=== PATIENT | male | born 1975 | race Caucasian/White ===

== ENCOUNTER 2019-11-15 13:48 | Emergency (ER) | payer OTHER, SELFPAY ==
[2019-11-15 13:56] VITALS: BP 167/86; PULSE 74; RESP 16; TEMP 36.4; O2SAT 100
--- NOTE | 2019-11-15 15:22 | ED.WOUNDLAC ---
HPI - Wound/Laceration General Chief Complaint: Wound/Laceration Stated Complaint: LACERATION Time Seen by Provider: 11/15/19 13:53 Source: patient Mode of arrival: ambulatory Limitations: no limitations History of Present Illness HPI narrative: This is a 44-year-old male who presents the emergency department for left thumb laceration sustained just prior to arrival. Reports at work he hit his thumb on a metal down spout. Reports some bleeding to the area. Reports he is up-to-date on tetanus. Denies numbness or decreased range of motion. Related Data Home Medications Medication Instructions Recorded Confirmed aspirin 09/27/19 atorvastatin 09/27/19 clopidogrel 09/27/19 Allergies Allergy/AdvReac Type Severity Reaction Status Date / Time No Known Allergies Allergy Unverified 09/27/19 07:40 Review of Systems Review of Systems: Narrative: CONSTITUTIONAL: Denies fever SKIN: Reports laceration MUSCULOSKELETAL: Denies joint pain NEUROLOGIC: Denies numbness All systems reviewed & are unremarkable except as noted in HPI and below PMFSH Past Medical History Medical History (Updated 11/15/19 @ 15:23 by Renea Thurman PA-C) Coronary artery disease Diabetes mellitus Hyperlipidemia Surgical History Surgical History (Updated 09/27/19 @ 08:34 by Kristie Mcdowell MD) History of appendectomy History of cardiac catheterization History of coronary artery stent placement Social History Social History (Updated 09/27/19 @ 08:34 by Kristie Mcdowell MD) Smoking packs per day: 1 Smoking cigarettes per day: 20.0 Years smoked: 30 Smoking pack-years: 30.00 Smoking status: Current every day smoker Gender identity (if verbalized by the patient): Male Exam Narrative: Exam Narrative: GENERAL: Well-appearing, well-nourished, and in no acute distress. HEAD: Normocephalic, atraumatic. EYES: EOMI. EXTREMITIES: Normal range of motion. No edema or obvious deformity. 1.5 cm linear laceration into subcutaneous tissue over dorsal surface at base of left first finger SKIN: Warm, dry, no rash. NEURO: No focal deficits. Alert and oriented x3. PSYCH: Normal mood and affect Course Vital Signs Vital signs: Vital Signs Temperature 97.5 F L 11/15/19 13:56 Pulse Rate 74 11/15/19 13:56 Respiratory Rate 16 11/15/19 13:56 Blood Pressure 167/86 H 11/15/19 13:56 Pulse Oximetry 100 11/15/19 13:56 Temperature 97.5 F L 11/15/19 13:56 Pulse Rate 74 11/15/19 13:56 Respiratory Rate 16 11/15/19 13:56 Blood Pressure 167/86 H 11/15/19 13:56 Pulse Oximetry 100 11/15/19 13:56 Procedures Laceration Laceration 1: Date: 11/15/19 Time: 15:25 Site: upper extremity Side (If applicable): left Size (cm): 1.5 Description: linear Depth: simple, single layer Local Anesthetic: lidocaine 1% Amount of anesthesia used (mL): 2 Pre-repair: irrigated ====== Skin Level ====== Skin layer closed with: nylon Size (cm): 5-0 Number of sutures: 2 Technique: simple, interrupted ====== Subcutaneous Layer ====== ====== Muscle Layer ====== ====== Tendon Layer ====== Dressing: Wound covered with antibiotic ointment, Telfa, Kerlix and Coban MDM - Wound/Laceration MDM Narrative Medical decision making narrative: Patient presents the emergency department for laceration to left thumb sustained just prior to arrival. Patient is up-to-date on tetanus. His wound was irrigated and closed with sutures. Patient will be started on a prophylactic antibiotic as his wound was a little dirty and it is on the hand. Patient was instructed on wound care. He is to follow-up with primary care doctor. He was given warnings to return to the ER Critical Care Time Critical Care Time Critical Care Time: No Discharge Plan Discharge Clinical Impression: Laceration Patient Disposition: Home, Self-
== END 2019-11-15 15:38 | disposition home or self-care (01) ==
PROVIDERS: Emergency Provider Emergency Medicine
DX: S61.012A Laceration without foreign body of left thumb without damage to nail, initial encounter (principal); I25.10 Atherosclerotic heart disease of native coronary artery without angina pectoris; E11.9 Type 2 diabetes mellitus without complications; E78.5 Hyperlipidemia, unspecified; Z79.82 Long term (current) use of aspirin; Z95.5 Presence of coronary angioplasty implant and graft; F17.210 Nicotine dependence, cigarettes, uncomplicated; W26.8XXA Contact with other sharp object(s), not elsewhere classified, initial encounter
CPT/HCPCS: 12001; 99283

== ENCOUNTER 2021-05-01 16:02 | Emergency (ER) | payer OTHER, SELFPAY ==
[2021-05-01] VITALS (10 sets, daily range): BP systolic 133–146; BP diastolic 73–86; PULSE 67–82; RESP 16–21; TEMP 36.6; O2SAT 91–100
--- NOTE | ~2021-05-01 | CT_ITS ---
EXAMINATION: CT chest abdomen pelvis w con DATE: 05/01/2021 17:06 INDICATION: 15 foot fall from a ladder with right rib and abdominal pain. TECHNIQUE: Computed tomography (CT) of the chest, abdomen, and pelvis was performed with 100 mL Omnip aque-350 intravenous contrast. Automated exposure control and iterative reconstruction technique were employed. The dose-length product was 1009.09 mGy-cm. COMPARISON: 04/17/2012 FINDINGS: CHEST CT: Lungs are clear with no pneumonia, pulmonary edema or other pulmonary infiltrates, pleural effusion o r pneumothorax. Heart size is normal. Atherosclerotic coronary artery calcification and likely stenti ng along the left anterior descending coronary artery. No pericardial effusion. Thoracic aorta is nor mal in caliber with no dissection. No pathologically enlarged thoracic lymphadenopathy. Mild thoracic spondylosis with multiple Schmorl's nodes and minimal chronic anterior wedging at T8. No rib fractur es or other acute osseous abnormality. ABDOMEN/PELVIS CT: Liver, gallbladder, spleen, pancreas, bilateral adrenal glands and kidneys are normal. Bowels are nor mal. The appendix is not visualized. No pericecal inflammatory change to suggest acute appendicitis. Bladder is normal. Mild prostatomegaly. Small bilateral fat-containing inguinal hernias. No free intr aperitoneal gas or fluid. No pathologically enlarged abdominal or pelvic lymphadenopathy. Subcutaneou s contusion overlying the right anterior iliac spine. 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 No acute osseous abnormality. IMPRESSION: 1. No fracture or acute intrathoracic, abdominal or pelvic process. Reviewed, dictated and finalized at location A.
--- NOTE | 2021-05-01 16:34 | ECG_ITS ---
Measurements Intervals Adrian Rate: 71 P: 48 ID: [id number] QRS: 17 QRSD: 92 T: 48 QT: 367 QTc: 399 Interpretive Statements SINUS RHYTHM DELAYED PRECORDIAL R/S TRANSITION BORDERLINE ECG Electronically Signed On 05-01-2021 16:36:52 CDT by Isak Sparks D.O.
[2021-05-01 16:39] LABS: Basophils Absolute Auto 0.1 K/mm3 (0.0-0.1); Basophils Percent Auto 0.5 % (0.2-1.2); Eosinophils Absolute Auto 0.3 K/mm3 (0-0.3); Eosinophils Percent Auto 2.6 % (0-4.4); Hematocrit 44.6 % (42.0-52.0); Hemoglobin 14.7 g/dL (14.0-18.0); Immature Granulocyte Absolute 0.07 K/mm3 (0.00-0.031); Immature Granulocyte Percent A 0.5 % (0-0.5); Lymphocytes Absolute Auto 3.54 K/mm3 (0.9-3.2); Lymphocytes Percent Auto 27.3 % (18.3-44.2); Mean Corpuscular Hemoglobin 30.8 pg (26-34); Mean Corpuscular Volume 93.3 fl (80-100); Mean Platelet Volume 9.9 fl (7.4-10.4); Monocytes Absolute Auto 0.8 K/mm3 (0.1-0.6); Monocytes Percent Auto 6.3 % (2.6-8.5); Neutrophils Absolute Auto 8.1 K/mm3 (1.3-6.7); Neutrophils Percent Auto 62.8 % (45.5-73.1); Platelet Count Result 308 k/mm3 (150-375); Red Blood Count 4.78 M/mm3 (4.6-6.20)
[2021-05-01 16:58] LABS: Alanine Aminotransferase 46 U/L (4-50); Albumin Level 4.5 g/dL (3.5-5.1); Alkaline Phosphatase 107 U/L (38-126); Anion Gap 10 mmol/L (8-16); Aspartate Amino Transferase 42 U/L (17-59); Bilirubin,Total 0.4 mg/dL (0.2-1.3); Blood Urea Nitrogen 22 mg/dL (9-20); Calcium 9.5 mg/dL (8.4-10.2); Carbon Dioxide 26 mmol/L (22-30); Chloride 102 mmol/L (98-107); Estimated CRCL calculation 97 ml/min; Estimated Glomerular Filt Rate > 60; Glucose 187 mg/dL (65-110); Potassium 4.1 mmol/L (3.4-5.0); Sodium 138 mmol/L (137-145)
[2021-05-01 17:02] LABS: Prothrombin Time 12.6 Seconds (11.1-14.7)
--- NOTE | 2021-05-01 17:03 | ED.FALL ---
HPI - Fall General Chief Complaint: Fall Stated Complaint: Fell ~10 ft off ladder,landed on r side Time Seen by Provider: 05/01/21 16:19 Source: patient, family and RN notes reviewed Mode of arrival: ambulatory Limitations: no limitations History of Present Illness HPI Narrative: Patient is a 46-year-old male who presents to emergency department for evaluation of injuries that occurred this morning after falling 15 feet on a ladder onto the grass onto his right side patient went home and attempted to lay down but notes that he continues to have pain to the right ribs flank and abdomen on the right side patient denies any vomiting extremity injury patient notes he may have hit his head but denies any syncope notes he may have had brief loss of consciousness but denies any lightheadedness or dizziness notes minimal headache is currently on Plavix presents per private vehicle appears uncomfortable but not distressed Related Data Home Medications Medication Instructions Recorded Confirmed aspirin 09/27/19 atorvastatin 09/27/19 clopidogrel 09/27/19 Allergies Allergy/AdvReac Type Severity Reaction Status Date / Time No Known Allergies Allergy Verified 05/01/21 16:14 Review of Systems Review of Systems: All systems reviewed & are unremarkable except as noted in HPI and below PMFSH Past Medical History Medical History Coronary artery disease Diabetes mellitus Hyperlipidemia Surgical History Surgical History History of appendectomy History of cardiac catheterization History of coronary artery stent placement Social History Social History Smoking packs per day: 1 Smoking cigarettes per day: 20.0 Years smoked: 30 Smoking pack-years: 30.00 Smoking status: Current every day smoker Gender identity (if verbalized by the patient): Male Exam Narrative: Exam Narrative: GENERAL: Well-appearing, well-nourished, and in no acute distress. HEAD: Normocephalic, atraumatic. EYES: PERRLA and EOMI. ENT: Nares clear, no rhinorrhea or epistaxis. Mucous membranes moist. NECK: Supple. No adenopathy or masses. CHEST: Clear to auscultation. No respiratory distress. No wheezes rales or rhonchi. Tenderness of the right lateral lower ribs HEART: Regular rate and rhythm. No murmur heard. Normal peripheral pulses. ABDOMEN: Soft, right flank tenderness, distended, normal active bowel sounds. EXTREMITIES: Normal range of motion. No edema. No midline cervical thoracic or lumbar tenderness SKIN: Warm, dry, no rash. NEURO: No focal deficits. Alert and oriented x3. Cranial nerves II through XII grossly intact. Normal speech and gait PSYCH: Normal mood and affect. Course Course Emergency Course: Patient presented after falling from 15 feet had evaluation with CT imaging no concerning results blood work without concerning findings patient resting comfortably in the room was medicated feeling better with medications is afebrile nontoxic-appearing ABCs and vital signs intact and stable felt appropriate for outpatient reevaluation Vital Signs Vital signs: Vital Signs Temperature 97.9 F 05/01/21 16:10 Pulse Rate 70 05/01/21 16:10 Respiratory Rate 16 05/01/21 16:10 Blood Pressure 146/73 H 05/01/21 16:10 Pulse Oximetry 99 05/01/21 16:10 Temperature 97.9 F 05/01/21 16:10 Pulse Rate 67 05/01/21 17:48 Respiratory Rate 18 05/01/21 17:48 Blood Pressure 141/78 H 05/01/21 17:33 Pulse Oximetry 91 05/01/21 17:48 MDM - Fall MDM Narrative Medical decision making narrative: Patients injury or pain is consistent with musculoskeletal etiology. No signs of neurological or vascular compromise on exam. Compartments and tisues are soft without signs of compartment syndrome. Pain is felt appropriate for further evaluation on an outpatient b
[2021-05-01 17:04] LABS: Partial Thromboplastin Time 30.1 SECONDS (22.3-36.8)
[2021-05-01] MEDS: MORPHINE SULFATE (*CRX) 4 MG/ML INJ IV PUSH (17:32)
[2021-05-01] MEDS: diazePAM INJ (*CRX) 10 MG/2 ML SYRINGE 2.5 MG IV PUSH (17:32)
[2021-05-01 17:45] LABS: Add Urine Microscopic? NO; Appearance Urine Clear (Clear); Bilirubin Urine Negative (Negative); Blood Urine Negative (Negative); Color Urine Yellow (Yellow); Glucose Urine UA Negative (Negative); Ketones Urine Negative (Negative); Leukocyte Esterase Ur Negative LEU/UL (Negative); Nitrate Urine Negative (Negative); Protein Urine Negative (Negative); Urobilinogen Urine Negative mg/dL (<2.0)
--- NOTE | 2021-05-01 18:27 | PC.NURSE ---
no bruising, vaughn, or obvious injuries or deformities to patient.
[2021-05-01 18:50] LABS: Specific Grav Ur 1.031 (1.001-1.035)
== END 2021-05-01 18:40 | disposition home or self-care (01) ==
PROVIDERS: Emergency Medicine Emergency Medical Services; Emergency Provider Emergency Medicine; PCP Nurse Practitioner Adult Health
DX: R07.81 Pleurodynia (principal); S09.90XA Unspecified injury of head, initial encounter; R10.9 Unspecified abdominal pain; I25.10 Atherosclerotic heart disease of native coronary artery without angina pectoris; Z95.5 Presence of coronary angioplasty implant and graft; F17.210 Nicotine dependence, cigarettes, uncomplicated; R94.31 Abnormal electrocardiogram [ECG] [EKG]; W11.XXXA Fall on and from ladder, initial encounter
CPT/HCPCS: 36415; 71260; 74177; 80053; 81003; 85025; 85610; 85730; 93005; 96374; 96375; 99284; J2270; J3360; Q9967

== ENCOUNTER 2024-05-21 11:33 | Outpatient (CLI) | payer OTHER, SELFPAY ==
--- NOTE | ~2024-05-21 | XR_ITS ---
XR_[id number]_CR Ordering provider: Faith Wood APRN History: . W19.XXXA - Unspecified fall, initial encounter . Comparison: None. FINDINGS: BONES: Fracture fracture of the ninth and 10th ribs. MEDIASTINUM: The cardiac silhouette is not enlarged. LUNGS: No effusions or infiltrates. No pneumothorax. SOFT TISSUES: Normal. IMPRESSION: Highly suggestive fracture of the right ninth and 10th ribs. Reviewed, dictated and finalized at location A.
--- NOTE | ~2024-05-21 | XR_ITS ---
Thoracic spine: Clinical Indication: Thoracic AP and lateral views were performed. No fracture is seen. There is normal alignment of the vertebrae. The intervertebral disc spaces appe ar normal. Paravertebral soft tissues appear normal. Impression: No significant abnormalities noted. Reviewed, dictated and finalized at [facility]. Impression: No significant abnormalities noted.
--- NOTE | ~2024-05-21 | XR_ITS ---
Lumbosacral Spine: AP and lateral views Clinical History: Pain Findings: The normal lordotic curve is maintained. Mild compression deformity of L1 noted. No subluxa tion. The intervertebral disc spaces are preserved. There is moderate facet arthropathy at all lumba r spine. The sacroiliac joints are normally outlined. Impression: Mild L1 compression deformity, age-indeterminate. Moderate facet arthropathy lower lumbar spine. Reviewed, dictated and finalized at location . Impression: Mild L1 compression deformity, age-indeterminate. Moderate facet arthropathy lower lumbar spine.
[2024-05-21 19:09] LABS: Basophils Absolute Auto 0.1 K/mm3 (0.0-0.1); Basophils Percent Auto 0.5 % (0.2-1.2); Eosinophils Absolute Auto 0.3 K/mm3 (0-0.3); Eosinophils Percent Auto 2.7 % (0-4.4); Hematocrit 50.1 % (42.0-52.0); Hemoglobin 16.4 g/dL (14.0-18.0); Immature Granulocyte Absolute 0.05 K/mm3 (0.00-0.031); Immature Granulocyte Percent A 0.5 % (0-0.5); Lymphocytes Percent Auto 34.5 % (18.3-44.2); Mean Corpuscular HGB Conc 32.7 g/dl (32-36); Mean Corpuscular Hemoglobin 31.4 pg (26-34); Mean Corpuscular Volume 95.8 fl (80-100); Mean Platelet Volume 9.7 fl (7.4-10.4); Monocytes Absolute Auto 0.8 K/mm3 (0.1-0.6); Monocytes Percent Auto 7.8 % (2.6-8.5); Neutrophils Absolute Auto 5.3 K/mm3 (1.3-6.7); Platelet Count Result 334 k/mm3 (150-375); Red Blood Count 5.23 M/mm3 (4.6-6.20); Red Cell Distribution Width 13.6 % (11.5-14.5); White Blood Count 9.9 K/mm3 (4.5-10.0)
[2024-05-21 19:37] LABS: Alanine Aminotransferase 50 U/L (6-50); Albumin Level 4.8 g/dL (3.5-5.1); Alkaline Phosphatase 107 U/L (38-126); Anion Gap 10 mmol/L (4-12); Aspartate Amino Transferase 110 U/L (17-59); Bilirubin,Total 0.4 mg/dL (0.2-1.3); Blood Urea Nitrogen 14 mg/dL (9-20); Calcium 9.2 mg/dL (8.4-10.2); Carbon Dioxide 27 mmol/L (22-30); Chloride 102 mmol/L (98-107); Cholesterol 154 mg/dL (0-200); Estimated Glomerular Filt Rate > 60; Glucose 98 mg/dL (65-110); HDL Direct 40 mg/dL; Potassium 4.7 mmol/L (3.4-5.0); Sodium 139 mmol/L (137-145); Triglycerides 167 mg/dL (<150)
[2024-05-21 19:45] LABS: Creatinine Urine 64.5 mg/dL
[2024-05-21 19:48] LABS: LDL Cholesterol Direct 83 mg/dL
[2024-05-21 19:49] LABS: Thyroid Stimulating Hormone Reflex 0.539 uIU/mL (0.465-4.68)
[2024-05-21 20:29] LABS: MALB Creatinine Ratio < 9.3 mg/g (0-30); Microalbumin Urine Random < 6.0 mg/L (0-16.7)
[2024-05-21 23:42] LABS: Hemoglobin A1C 6.7 % (<5.7)
== END 2024-05-21 11:34 | disposition home or self-care (01) ==
LOC: ANHBWCLAB 11:35
PROVIDERS: PCP Nurse Practitioner Adult Health; Visit Provider Nurse Practitioner Adult Health
DX: E11.9 Type 2 diabetes mellitus without complications (principal); E78.5 Hyperlipidemia, unspecified; W19.XXXA Unspecified fall, initial encounter; R91.8 Other nonspecific abnormal finding of lung field
CPT/HCPCS: 36415; 71110; 72072; 72100; 80053; 80061; 82043; 82565; 83036; 84443; 85025

== ENCOUNTER 2024-05-30 15:22 | Outpatient (CLI) | payer OTHER, SELFPAY ==
[2024-05-30 20:54] LABS: Alanine Aminotransferase 62 U/L (6-50); Albumin Level 4.5 g/dL (3.5-5.1); Alkaline Phosphatase 110 U/L (38-126); Aspartate Amino Transferase 98 U/L (17-59); Bilirubin,Total 0.3 mg/dL (0.2-1.3)
== END 2024-05-30 15:23 | disposition home or self-care (01) ==
LOC: ANHBWCLAB 15:23
PROVIDERS: PCP Nurse Practitioner Adult Health; Visit Provider Nurse Practitioner Adult Health
DX: R74.8 Abnormal levels of other serum enzymes (principal)
CPT/HCPCS: 36415; 80076

== ENCOUNTER 2024-06-11 07:51 | Outpatient (CLI) | payer OTHER, SELFPAY ==
--- NOTE | ~2024-06-11 | US_ITS ---
Limited Abdominal Sonogram: Real-time sonographic imaging of the right upper quadrant was performed. Clinical History: Abnormal serum enzyme levels Findings: The liver appears normal with no evidence of mass lesion or bile duct dilatation. Main por julio vein demonstrates normal direction of flow. The gallbladder is well distended, and appears normal with no evidence of gallstone or wall thickening. The common bile duct measures 4 mm. The visualize d pancreas, aorta, and IVC are unremarkable. Right kidney measures 9 point centimeters in length, wit h unremarkable appearance. Impression: No significant abnormality seen. Reviewed, dictated and finalized at location . Impression: No significant abnormality seen.
== END 2024-06-11 07:52 ==
LOC: MICIMG 07:52
PROVIDERS: PCP Nurse Practitioner Adult Health; Visit Provider Nurse Practitioner Adult Health
DX: R74.8 Abnormal levels of other serum enzymes (principal)
CPT/HCPCS: 76705

== ENCOUNTER 2024-09-06 13:16 | Outpatient (CLI) | payer OTHER, SELFPAY ==
--- NOTE | ~2024-09-06 | XR_ITS ---
CHEST RADIOGRAPH, PA AND LATERAL CLINICAL HISTORY: R05.9 - Cough, unspecified . COMPARISON: 09/27/2019 TECHNIQUE: PA and lateral views of the chest. FINDINGS The cardiomediastinal silhouette is unremarkable. The lungs are clear. Visualized osseous structures and soft tissues are unremarkable. IMPRESSION: No focal infiltrate or effusion. Reviewed, dictated and finalized at location A. AL NURSE
== END 2024-09-06 13:17 | disposition home or self-care (01) ==
LOC: ANHBWCIMG 13:18
PROVIDERS: PCP Nurse Practitioner Adult Health; Visit Provider Nurse Practitioner Adult Health
DX: R05.9 Cough, unspecified (principal)
CPT/HCPCS: 71046

== ENCOUNTER 2024-11-21 15:37 | Outpatient (CLI) | payer OTHER, SELFPAY ==
--- NOTE | ~2024-11-21 | CT_ITS ---
EXAMINATION: CT sinus wo con DATE: 11/21/2024 15:52 INDICATION: Anterior epistaxis. TECHNIQUE: Computed tomography (CT) of the paranasal sinuses was performed without intravenous contra st. Iterative reconstruction technique was employed. The dose-length product was 296.82 mGy-cm. COMPARISON: None FINDINGS: The frontal sinuses are hypoplastic. There is mild mucosal thickening in the bilateral ethm oid sinuses and maxillary sinuses. The sphenoid sinuses are clear. There is rightward deviation of th e nasal septum with a right lateral spur. The ostiomeatal units are patent. IMPRESSION: 1. Mild mucosal thickening in the paranasal sinuses. 2. Rightward deviation of the nasal septum. Reviewed, dictated and finalized at location A. [employer]
== END 2024-11-21 15:38 | disposition home or self-care (01) ==
PROVIDERS: PCP Nurse Practitioner Adult Health; Visit Provider Nurse Practitioner Family
DX: R04.0 Epistaxis (principal); J34.2 Deviated nasal septum
CPT/HCPCS: 70486

== ENCOUNTER 2025-10-01 15:14 | Outpatient (CLI) | payer OTHER, SELFPAY ==
--- NOTE | ~2025-10-01 | XR_ITS ---
EXAMINATION: XR chest 2V, 10/01/2025 15:13 [facility] HISTORY: R05.9 - Cough, unspecified COMPARISON: No comparisons available. Technique: 2 views obtained. Findings: The lungs are clear, no effusion. No pneumothorax. Heart is normal size. Mediastinal and hilar contours are within normal limits. Bony thorax no acute abnormality. Impression: No acute cardiopulmonary abnormality. Reviewed, dictated and finalized at location P. L CELEBR[facility] Impression: No acute cardiopulmonary abnormality.
== END 2025-10-01 15:15 | disposition home or self-care (01) ==
PROVIDERS: PCP Nurse Practitioner Adult Health; Visit Provider Nurse Practitioner Adult Health
DX: R05.9 Cough, unspecified (principal)
CPT/HCPCS: 71046